=== PATIENT | female | born 1930 | race Caucasian/White ===

== ENCOUNTER → 2016-12-03 | Outpatient (CLI) | payer OTHER ==
[~2016-12-03] MED LIST: MICARDIS HCT 81 EACH PO; OMEPRAZOLE40 MG PO; PHENERGAN 25 MG25 MG PO; ZOFRAN ODT4 MG PO
== END ==
LOC: RAD 11-25 16:05
DX: Z12.31 Encounter for screening mammogram for malignant neoplasm of breast (principal)

== ENCOUNTER → 2019-01-24 | Outpatient (CLI) | payer OTHER | LOC: RAD 01:38 | DX: Z12.31 Encounter for screening mammogram for malignant neoplasm of breast (principal) ==